=== PATIENT | female | born 1940 | race Caucasian/White ===

== ENCOUNTER → 2025-01-11 13:44 | Outpatient (REF) | payer OTHER, SELFPAY | LOC: HWRAD 13:44 | PROVIDERS: ATTENDING PHYSICIAN Student in an Organized Health Care Education/Training Program; FAMILY PHYSICIAN Family Medicine | DX: H93.13 Tinnitus, bilateral (principal); M17.9 Osteoarthritis of knee, unspecified; M25.511 Pain in right shoulder; M25.551 Pain in right hip; M25.552 Pain in left hip; M25.619 Stiffness of unspecified shoulder, not elsewhere classified; M35.3 Polymyalgia rheumatica; M54.2 Cervicalgia; Z79.52 Long term (current) use of systemic steroids; Z91.89 Other specified personal risk factors, not elsewhere classified | CPT/HCPCS: 72040; 72072 ==

== ENCOUNTER → 2025-02-10 09:28 | Outpatient (REF) | payer OTHER, SELFPAY | LOC: RAD 09:28 | PROVIDERS: ATTENDING PHYSICIAN Student in an Organized Health Care Education/Training Program; FAMILY PHYSICIAN Family Medicine | DX: M15.9 Polyosteoarthritis, unspecified (principal); H93.13 Tinnitus, bilateral; M17.9 Osteoarthritis of knee, unspecified; M25.512 Pain in left shoulder; M25.551 Pain in right hip; M25.552 Pain in left hip; M25.619 Stiffness of unspecified shoulder, not elsewhere classified; M35.3 Polymyalgia rheumatica; M54.2 Cervicalgia; Z79.52 Long term (current) use of systemic steroids; Z91.89 Other specified personal risk factors, not elsewhere classified | CPT/HCPCS: 77080 ==

== ENCOUNTER → 2025-05-03 12:16 | Outpatient (REF) | payer OTHER, SELFPAY | LOC: PAVMRI 12:16 | PROVIDERS: ATTENDING PHYSICIAN Student in an Organized Health Care Education/Training Program; FAMILY PHYSICIAN Family Medicine | DX: H93.13 Tinnitus, bilateral (principal); M15.9 Polyosteoarthritis, unspecified; M17.9 Osteoarthritis of knee, unspecified; M25.511 Pain in right shoulder; M25.512 Pain in left shoulder; M25.552 Pain in left hip; M25.619 Stiffness of unspecified shoulder, not elsewhere classified; M35.3 Polymyalgia rheumatica; M54.6 Pain in thoracic spine; M81.0 Age-related osteoporosis without current pathological fracture; Z79.52 Long term (current) use of systemic steroids; Z91.89 Other specified personal risk factors, not elsewhere classified; M54.2 Cervicalgia | CPT/HCPCS: 70553 ==